=== PATIENT | female | born 1975 | race Caucasian/White ===

== ENCOUNTER → 2025-11-05 09:53 | Outpatient (REF) | payer OTHER, SELFPAY | LOC: RAD 09:53 | PROVIDERS: ATTENDING PHYSICIAN Student in an Organized Health Care Education/Training Program; FAMILY PHYSICIAN Physician Assistant | DX: M06.09 Rheumatoid arthritis without rheumatoid factor, multiple sites (principal); M25.541 Pain in joints of right hand; M25.542 Pain in joints of left hand; M79.671 Pain in right foot; M79.672 Pain in left foot; M25.571 Pain in right ankle and joints of right foot; M25.572 Pain in left ankle and joints of left foot | CPT/HCPCS: 76882 ==